=== PATIENT | male | born 1995 | race Caucasian/White ===

== ENCOUNTER 2018-04-17 08:29 | Day surgery (SDC) | payer OTHER ==
[~2018-04-17 08:29] MED LIST: CEFAZOLIN SODIUM 2 GM in DEXTROSE 5%-WATER 100 ML IV PRN
[2018-04-17] MEDS ORDERED: LIDOCAINE 1% INJ-PF (10 MG/ML) 30 ML SDV ONE (09:17)
[2018-04-17] MEDS ORDERED: BUPIVACAINE HCL 0.5 % INJ/PF 30 ML SDV ONE (09:17)
[2018-04-17] MEDS ORDERED: MIDAZOLAM 2 MG/2 ML INJ ONE ×2 (09:44→10:40)
[2018-04-17] MEDS ORDERED: FENTANYL CITRATE INJ/PF 100 MCG/2 ML AMPUL ONE (10:39)
[2018-04-17] MEDS ORDERED: HYDROMORPHONE HCL INJ/PF 2 MG/ML AMPULE ONE (10:39)
[2018-04-17] MEDS ORDERED: DEXAMETHASONE SOD PHOSPHATE INJ 4 MG/1 ML VIAL ONE (10:40)
[2018-04-17] MEDS ORDERED: PROPOFOL INJ 200 MG/20 ML VIAL IV ONE (10:40)
[2018-04-17] MEDS ORDERED: ACETAMINOPHEN 1,000 MG/100 ML RTUPB IV ONE (10:40)
[2018-04-17] MEDS ORDERED: ONDANSETRON HCL INJ/PF 4 MG/2 ML SDV ONE (10:40)
[2018-04-17] MEDS ORDERED: MEPERIDINE HCL/PF INJ 25 MG/1 ML DISP.SYRIN IV PRN (11:25)
[2018-04-17] MEDS ORDERED: FENTANYL CITRATE INJ/PF 100 MCG/2 ML AMPUL IV PRN ×3 (11:25)
[2018-04-17] MEDS ORDERED: MORPHINE SULFATE 10 MG/ML INJ IV PRN (11:25)
[2018-04-17] MEDS ORDERED: DIPHENHYDRAMINE HCL 50 MG/ML VIAL IV PRN (11:25)
[2018-04-17] MEDS ORDERED: PROMETHAZINE HCL INJ 25 MG/1 ML VIAL IV PRN (11:25)
[2018-04-17] MEDS ORDERED: HYDROCODONE/ACETAMINOPHEN 5-325 MG TABLET PO PRN (13:06)
[2018-04-17] MEDS ORDERED: ONDANSETRON HCL INJ/PF 4 MG/2 ML SDV IV PRN (13:07)
[2018-04-17] MEDS ORDERED: HYDROCODONE/ACETAMINOPHEN 5-325 MG TABLET ONE (14:15)
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
--- NOTE | 2018-04-17 15:48 | RADIOLOGY REPORT (SQ) ---
EXAM DESCRIPTION: NO CHG FLUORO; ELBOW RIGHT AP/LAT COMPLETED DATE/TIME: 04/17/2018 3:37 pm REASON FOR STUDY: ORIF RT ELBOW ASST WITH FLUORO IN OR S53.006A UNSP DISLOCATION OF UNSPECIFIED RAD IAL HEAD, INIT E COMPARISON: None. FLUOROSCOPY TIME: 0 minutes 2 images saved to PACS. TECHNIQUE: Intra-operative images acquired during surgical procedure to evaluate progress. NUMBER OF IMAGES: 2 LIMITATIONS: None. FINDINGS: Orthopedic hardware radial head. IMPRESSION: IMAGE(S) OBTAINED DURING PROCEDURE. COMMENT: Quality ID 145: Final reports for procedures using fluoroscopy that document radiation exp osure indices, or exposure time and number of fluorographic images (if radiation exposure indices are not available) Please consult full operative report of the attending physician for description of the procedure. TECHNICAL DOCUMENTATION: JOB ID: [id number] [employer]- All Rights Reserved Reading location - IP/workstation name: [email or web address]
[2018-04-17 16:02] VITALS: BP 127/81
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
== END 2018-04-17 15:00 | disposition home or self-care (01) ==
LOC: OROUT 08:29
PROVIDERS: ATTEND Orthopaedic Surgery
DX: S52.121A Displaced fracture of head of right radius, initial encounter for closed fracture (principal); S53.124A Posterior dislocation of right ulnohumeral joint, initial encounter; M24.021 Loose body in right elbow; V86.56XA Driver of dirt bike or motor/cross bike injured in nontraffic accident, initial encounter; M25.321 Other instability, right elbow
CPT/HCPCS: 73070; 24665; 24341; 24999; C1713 ×3; J2250; J3490; J0690; J1100; J3010; J1170; J2405; J2704; J0131; 01740